=== PATIENT | male | born 1985 | race Caucasian/White ===

== ENCOUNTER 2021-07-08 09:41 | Emergency (ER) | payer OTHER ==
[2021-07-08] MEDS ORDERED: ceFAZolin 1 GM Vial IM ONE (10:06)
[2021-07-08] MEDS ORDERED: ceFAZolin 1 GM Vial ONE (10:14)
[2021-07-08] MEDS ORDERED: Ibuprofen 600 MG Tab PO ONE (11:59)
== END 2021-07-08 11:57 | disposition home or self-care (01) ==
LOC: MW.ED 09:41
DX: S68.627A Partial traumatic transphalangeal amputation of left little finger, initial encounter (principal); W26.8XXA Contact with other sharp object(s), not elsewhere classified, initial encounter
CPT/HCPCS: 12001; 73120; 96372; 99283; A9270; J0690